=== PATIENT | female | born 1970 | race Hispanic/Latino ===

== ENCOUNTER 2017-09-14 12:00 | Emergency (ER) | payer BC ==
[2017-09-14 12:52] VITALS: BP 138/94
[2017-09-14] MEDS ORDERED: DELTASONE PO ONE (13:02)
--- NOTE | 2017-09-14 13:07 | Emergency Department Report ---
Minor Respiratory - HPI Chief Complaint: Upper Respiratory Infection Stated Complaint: SICK Time Seen by Provider: 09/14/17 13:01 Duration: 2 weeks Severity: moderate Minor Respiratory: Yes Able to Tolerate Fluids, Yes Cough, No Rhinorrhea, No Sore Throat, No Ear Pain, No Sick Contacts, No Hemoptysis, No Chest Pain, No Shortness of Breath, No Fever Other History: 47-year-old female with no past medical history presents complaining of cough and body aches for the past 2 weeks. Patient states she is not getting better. Patient states she sitting some cough suppressant with no relief. He denies nausea/vomiting/chest pains or shortness of breath/ abdominal pain. ED Review of Systems ROS: Stated complaint: SICK Other details as noted in HPI Constitutional: denies: chills, fever Eyes: denies: eye pain, eye discharge, vision change ENT: congestion. denies: ear pain, throat pain Respiratory: cough. denies: shortness of breath, wheezing Cardiovascular: denies: chest pain, palpitations Endocrine: no symptoms reported Gastrointestinal: denies: abdominal pain, nausea, vomiting, diarrhea Genitourinary: denies: urgency, dysuria, discharge Musculoskeletal: denies: back pain, joint swelling, arthralgia Skin: denies: rash, lesions Neurological: denies: headache, weakness, paresthesias Psychiatric: denies: anxiety, depression Hematological/Lymphatic: denies: easy bleeding, easy bruising ED Past Medical Hx - Past Medical History Previous Medical History?: Yes Additional medical history: Heart palpitations - Surgical History Past Surgical History?: Yes Additional Surgical History: x 2, Tonsillectomy - Social History Smoking Status: Never Smoker Substance Use Type: Alcohol, Prescribed - Medications Home Medications: Home Medications Medication Instructions Recorded Confirmed Last Taken Type Acetamin/Codeine 120-12Mg/5 ml 5 ml PO TID PRN #80 ml 09/14/17 Unknown Rx [Tylenol/Codeine] Azithromycin [Zithromax] 250 mg PO DAILY #6 tablet 09/14/17 Unknown Rx guaiFENesin [Mucinex] 600 mg PO BID #24 tab.er.12h 09/14/17 Unknown Rx predniSONE [Deltasone] 10 mg PO QDAY #5 tab 09/14/17 Unknown Rx Minor Respiratory Exam - Exam General: Vital signs noted. No distress. Alert and acting appropriately. HEENT: Yes Moist Mucous Membranes, No Pharyngeal Erythema, No Pharyngeal Exudates, No Rhinorrhea, No Conjuctival Injection, No Frontal Tenderness, No Maxillary Tenderness Ear: Neither TM Bulge, Neither TM Erythema, Neither EAC Pain, Neither EAC Discharge Neck: Yes Supple, No Adenopathy Lungs: Yes Good Air Exchange, No Wheezes, No Ronchi, No Stridor, No Cough, No Labored Respirations, No Retractions, No Use of Accessory Muscles, No Other Abnormal Lung Sounds Heart: Yes Regular, No Murmur Abdomen: Yes Normal Bowel Sounds, No Tenderness, No Peritoneal Signs Skin: No Rash, No Edema Neurologic: Alert and oriented, no deficits. Musculoskeletal: Unremarkable. ED Course Vital Signs 09/14/17 12:48 Temperature 98.8 F Pulse Rate 89 Respiratory 20 Rate Blood Pressure 138/94 O2 Sat by Pulse 98 Oximetry ED Medical Decision Making - Radiology Data Radiology results: report reviewed, image reviewed Fluoro Time In Minutes: ROUTINE CHEST, TWO VIEWS: HISTORY: Productive cough. The trachea, heart, mediastinal contour, lung dean and bony thorax are unremarkable. IMPRESSION: Unremarkable chest x-ray. Transcribed By: TTR Dictated By: EMILY GEORGE JR, MD Electronically Authenticated By: EMILY GEORGE JR, MD Signed Date/Time: 09/14/17 1309 - Medical Decision Making 47-year-old female presents with cold symptoms. Fever resolved,no fever during the ED stay. Discussed with with pt symptomatic relief with [id number] medications. Discussed continue Motrin as needed for fever and pain. Discussed increase fluids and diet intake. Discussed rest much needed. Discussed daily vitamin C for immune booster. Discussed follow-up with inventory analyst in 3-5 days. Patient verbally states she understands and will comply the following instructions and follow-up Vital signs stable. Patient is in no acute distress Critical care attestation.: If time is entered above; I have spent that time in minutes in the direct care of this critically ill patient, excluding procedure time. ED Disposition Clinical Impression: Bronchitis URI (upper respiratory infection) Qualifiers: URI type: unspecified URI Qualified Code(s): J06.9 - Acute upper respiratory infection, unspecified Disposition: - TO HOME OR SELFCARE Is pt being admited?: No Does the pt Need Aspirin: No Condition: Stable Instructions: Upper Respiratory Infection (ED), Acute Bronchitis (ED), Chronic Bronchitis (ED), Cold Symptoms (ED) Additional Instructions: Make sure to follow up with the primary care physician as discussed. Take all your medications as you've been prescribed. If you have any worsening symptoms or develop new symptoms please return to ED immediately. Prescriptions: Acetamin/Codeine 120-12Mg/5 ml [Tylenol/Codeine] 5 ml PO TID PRN #80 ml PRN Reason: Pain Azithromycin [Zithromax] 250 mg PO DAILY #6 tablet guaiFENesin [Mucinex] 600 mg PO BID #24 tab.er.12h predniSONE [Deltasone] 10 mg PO QDAY #5 tab Referrals: VERONICA MAS MD [Primary Care Provider] - 3-5 Days VALENTÍN FLOWER MD [Staff Physician] - 3-5 Days Forms: Work/School Release Form(ED) Time of Disposition: 15:02
--- NOTE | 2017-09-14 13:16 | XRay Report ---
ROUTINE CHEST, TWO VIEWS: HISTORY: Productive cough. The trachea, heart, mediastinal contour, lung dean and bony thorax are unremarkable. IMPRESSION: Unremarkable chest x-ray.
== END 2017-09-14 15:10 | disposition home or self-care (01) ==
LOC: ED 12:00
DX: J40 Bronchitis, not specified as acute or chronic (principal); J06.9 Acute upper respiratory infection, unspecified
CPT/HCPCS: 71046; 87116; 87400; 87430; 99283; J7512

== ENCOUNTER 2017-09-19 13:48 | Emergency (ER) | payer BC ==
[2017-09-19 13:50] VITALS: BP 113/76
--- NOTE | 2017-09-19 13:59 | Emergency Department Report ---
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 She's been dealing with the previous diagnosis of bronchitis for the past week or so. She has already finished a Z-Rick, 2 rounds of prednisone and is currently taking Keflex. She had been taking cough medication with codeine which does help her with her cough and get rest in the evening but it has run out. She denies any current fever, chest pain, shortness of breath. She has a primary care physician, Dr. Copeland, for follow- up. No recent travel. ED Past Medical Hx - Past Medical History Additional medical history: Heart palpitations - Surgical History Additional Surgical History: x 2, Tonsillectomy - Social History Smoking Status: Never Smoker Substance Use Type: Alcohol, Prescribed - Medications Home Medications: Home Medications Medication Instructions Recorded Confirmed Last Taken Type Azithromycin [Zithromax] 250 mg PO DAILY #6 tablet 09/14/17 Unknown Rx guaiFENesin [Mucinex] 600 mg PO BID #24 tab.er.12h 09/14/17 Unknown Rx predniSONE [Deltasone] 10 mg PO QDAY #5 tab 09/14/17 Unknown Rx Acetamin/Codeine 120-12Mg/5 ml 5 ml PO TID PRN #140 ml 09/19/17 Unknown Rx [Tylenol/Codeine 120-12 mg/5 ml] ED Review of Systems ROS: Stated complaint: cough Other details as noted in HPI Comment: All other systems reviewed and negative Constitutional: denies: chills, fever Eyes: denies: eye pain, eye discharge, vision change ENT: denies: ear pain, throat pain Respiratory: cough. denies: shortness of breath Cardiovascular: denies: chest pain, palpitations Gastrointestinal: denies: abdominal pain, nausea, diarrhea Genitourinary: denies: urgency, dysuria, discharge Musculoskeletal: denies: back pain, joint swelling, arthralgia Skin: denies: rash, lesions Neurological: denies: headache, weakness, paresthesias Physical Exam - Physical Exam Vital Signs: Vital Signs 09/19/17 13:49 Temperature 97.8 F Pulse Rate 91 H Respiratory 18 Rate Blood Pressure 113/76 O2 Sat by Pulse 96 Oximetry Physical Exam: GENERAL: The patient is well-developed well-nourished. HENT: Normocephalic. Atraumatic. Patient has moist mucous membranes. EYES: Extraocular motions are intact. NECK: Supple. Trachea is midline. CHEST/LUNGS: Clear to auscultation. Productive cough heard during examination. There is no respiratory distress noted. HEART/CARDIOVASCULAR: Regular. There is no tachycardia. There is no murmur. ABDOMEN: Abdomen is soft. Patient has normal bowel sounds. There is no abdominal distention. SKIN: Skin is warm and dry. NEURO: The patient is awake, alert, and oriented. The patient is cooperative. The patient has no focal neurologic deficits. The patient has normal speech and gait. MUSCULOSKELETAL: There is no tenderness or deformity. There is no evidence of acute injury. ED Course Vital Signs 09/19/17 13:49 Temperature 97.8 F Pulse Rate 91 H Respiratory 18 Rate Blood Pressure 113/76 O2 Sat by Pulse 96 Oximetry ED Medical Decision Making - Medical Decision Making She has a productive cough but does not appear to be in any respiratory distress. She appears he had a chest x-ray that does not show any pneumonia. Vital signs stable including being afebrile and no hypoxia. I refilled her cough medication and she is encouraged to see her PCP. She will return to the ER if any worsening of her symptoms or any acute distress. - Differential Diagnosis bronchitis, asthma, URI, pneumonia Critical Care Time: No Critical care attestation.: If time is entered above; I have spent that time in minutes in the direct care of this critically ill patient, excluding procedure time. ED Disposition Clinical Impression: Bronchitis URI (upper respiratory infection) Qualifiers: URI type: unspecified URI Qualified Code(s): J06.9 - Acute upper respiratory infection, unspecified Disposition: DC-01 TO HOME OR SELFCARE Is pt being admited?: No Condition: Stable Instructions: Chronic Bronchitis (ED) Additional Instructions: Please follow up with your PCP. Return to the ED with any worsening of your symptoms or any acute distress. You have been prescribed a medication that is sedating and therefore should not be taken prior to driving, working, and responsible for children and in no way should be mixed with alcohol of any quantity. Prescriptions: Acetamin/Codeine 120-12Mg/5 ml [Tylenol/Codeine 120-12 mg/5 ml] 5 ml PO TID PRN #140 ml PRN Reason: Cough Referrals: DEANN COPELAND MD [Referring] - 3-5 Days Time of Disposition: 13:55
== END 2017-09-19 15:00 | disposition home or self-care (01) ==
LOC: ED 13:48
DX: J40 Bronchitis, not specified as acute or chronic (principal); J06.9 Acute upper respiratory infection, unspecified
CPT/HCPCS: 99282

== ENCOUNTER 2019-10-22 22:18 | Emergency (ER) | payer SELFPAY ==
[2019-10-22 23:08] VITALS: BP 130/80
--- NOTE | 2019-10-22 23:30 | XRay Report ---
RIGHT HIP, 2 VIEWS INDICATION / CLINICAL INFORMATION: right hip pain. COMPARISON: None available. FINDINGS: There is prominent degenerative change involving the right hip. There is loss of joint space as well as subchondral sclerosis within the superior acetabulum. There is also some mottling of the bone with in the right femoral head. No fracture or dislocation. IMPRESSION: Prominent degenerative change involving the right hip. Signer Name: Kirsten Hughes MD Signed: 10/22/2019 11:25 PM Workstation Name: [id number]
== END 2019-10-22 23:40 | disposition left against medical advice (07) ==
LOC: ED 22:18
DX: M25.551 Pain in right hip (principal); Z53.21 Procedure and treatment not carried out due to patient leaving prior to being seen by health care provider

== ENCOUNTER 2019-11-12 15:30 | Emergency (ER) | payer BC ==
[2019-11-12 15:35] VITALS: BP 141/95
--- NOTE | 2019-11-12 16:24 | XRay Report ---
CHEST 1 VIEW INDICATION / CLINICAL INFORMATION: Cough for 2 weeks, Poss Covid 2 exposure. COMPARISON: 09/14/2017 FINDINGS: SUPPORT DEVICES: None. HEART / MEDIASTINUM: No significant abnormality. LUNGS / PLEURA: No significant pulmonary or pleural abnormality. No pneumothorax. ADDITIONAL FINDINGS: No significant additional findings. IMPRESSION: No acute pulmonary or pleural abnormality. No change from 09/14/2017 Signer Name: Shar Medina MD FACR Signed: 11/12/2019 4:20 PM Workstation Name: [id number]
--- NOTE | 2019-11-12 16:50 | Emergency Department Report ---
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 Patient states that she has been taking ibuprofen and acetaminophen for her musculoskeletal problems. Patient also reports that she has not been able to sleep as she has not been on her trazodone for a few nights. Patient does admit that she has stayed away from her family members just for concerns since she has had positive covid contact. ED Review of Systems ROS: Stated complaint: CHILLS, CHEST PRESSURE,COUGH Other details as noted in HPI ED Past Medical Hx - Past Medical History Previous Medical History?: Yes Additional medical history: Heart palpitations - Surgical History Past Surgical History?: Yes Additional Surgical History: x 2, Tonsillectomy - Social History Smoking Status: Current Some Day Smoker Substance Use Type: Alcohol - Medications Home Medications: Home Medications Medication Instructions Recorded Confirmed Last Taken Type guaiFENesin [Mucinex] 600 mg PO BID #24 tab.er.12h 09/14/17 Unknown Rx predniSONE [Deltasone] 10 mg PO QDAY #5 tab 09/14/17 Unknown Rx Acetamin/Codeine 120-12Mg/5 ml 5 ml PO TID PRN #140 ml 09/19/17 Unknown Rx [Tylenol/Codeine 120-12 mg/5 ml] Albuterol Sulfate [Proventil Hfa] 6.7 gm IH QID PRN #1 hfa.aer.ad 11/12/19 Unknown Rx Azithromycin [Zithromax Z-CAROLINE] 250 mg PO DAILY #6 tablet 11/12/19 Unknown Rx traZODone [Desyrel] 100 mg PO QHS #30 tablet 11/12/19 Unknown Rx Minor Respiratory Exam - Exam General: Vital signs noted. No distress. Alert and acting appropriately. HEENT: Yes Moist Mucous Membranes, No Pharyngeal Erythema, No Pharyngeal Exudates, No Rhinorrhea, No Conjuctival Injection, No Frontal Tenderness, No Maxillary Tenderness Neck: Yes Supple, No Adenopathy Lungs: Yes Good Air Exchange, No Wheezes, No Ronchi, No Stridor, No Cough, No Labored Respirations, No Retractions, No Use of Accessory Muscles, No Other Abnormal Lung Sounds Heart: Yes Regular, No Murmur Abdomen: Yes Normal Bowel Sounds, No Tenderness, No Peritoneal Signs Skin: No Rash, No Edema Neurologic: Alert and oriented, no deficits. Musculoskeletal: Unremarkable. ED Course Vital Signs 11/12/19 15:32 Temperature 99.9 F H Pulse Rate 89 Blood Pressure 141/95 ED Medical Decision Making - Radiology Data Radiology results: report reviewed [facility] [address] [place] [address] XRay Report Signed Patient: JERRY CAMPOS MR#: [id number] : 1970 Acct:[id number] Age/Sex: 49 / F ADM Date: 11/12/19 Loc: ED Attending Dr: Ordering Physician: ED MD ASHISH Date of Service: 11/12/19 Procedure(s): XR chest 1V ap Accession Number(s): [id number] cc: ED MD ASHISH Fluoro Time In Minutes: CHEST 1 VIEW INDICATION / CLINICAL INFORMATION: Cough for 2 weeks, Poss Covid 2 exposure. COMPARISON: 09/14/2017 FINDINGS: SUPPORT DEVICES: None. HEART / MEDIASTINUM: No significant abnormality. LUNGS / PLEURA: No significant pulmonary or pleural abnormality. No pneumothorax. ADDITIONAL FINDINGS: No significant additional findings. IMPRESSION: No acute pulmonary or pleural abnormality. 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 Patient states that she has been taking ibuprofen and acetaminophen for her musculoskeletal problems. Patient also reports that she has not been able to sleep as she has not been on her trazodone for a few nights. Patient does admit that she has stayed away from her family members just for concerns since she has had positive covid contact. Patient will be placed on a azithromycin encouraged to take Tylenol for fever and pain will discharge her on an albuterol inhaler as well as a refill on her trazodone. Patient is instructed to follow-up with her primary care doctor if her symptoms persist symptoms worsen to return back to the emergency room immediately. Critical care attestation.: If time is entered above; I have spent that time in minutes in the direct care of this critically ill patient, excluding procedure time. ED Disposition Clinical Impression: Upper respiratory infection, Chronic insomnia, Fever and chills Disposition: TO HOME OR SELFCARE Is pt being admited?: No Does the pt Need Aspirin: No Condition: Stable Instructions: Upper Respiratory Infection (ED) Additional Instructions: Complete antibiotics as prescribed use inhaler as needed take medications as prescribed. Follow-up with your primary care provider next 2 to 3 days. Increase your fluid intake advance her diet as tolerated try to get sleep as this will help you body recover. Prescriptions: traZODone [Desyrel] 100 mg PO QHS #30 tablet Albuterol Sulfate [Proventil Hfa] 6.7 gm IH QID PRN #1 hfa.aer.ad PRN Reason: Shortness Of Breath Azithromycin [Zithromax Z-CAROLINE] 250 mg PO DAILY #6 tablet Referrals: PRIMARY CARE, [Primary Care Provider] - 3-5 Days Forms: Work/School Release Form(ED)
== END 2019-11-12 17:04 | disposition home or self-care (01) ==
LOC: ED 15:30
DX: J06.9 Acute upper respiratory infection, unspecified (principal); F51.04 Psychophysiologic insomnia; F17.200 Nicotine dependence, unspecified, uncomplicated; Z90.89 Acquired absence of other organs; Z98.890 Other specified postprocedural states; Z79.899 Other long term (current) drug therapy
CPT/HCPCS: 71045

== ENCOUNTER 2020-03-06 09:23 | Outpatient (CLI) | payer BC ==
--- NOTE | 2020-03-07 07:42 | Ultrasound Report ---
EXAMINATION: Left Limited Breast Ultrasound, 03/06/2020 INDICATION: Abnormal screening mammogram. Screening recall the left breast. The patient has a 6 mm nodular densit y in the left breast at the 9:00 position anterior depth which persists on spot compression views. COMPARISON: Screening mammogram, 01/18/2020. Diagnostic mammogram, 02/26/2020 FINDINGS: Targeted ultrasound evaluation was performed of the area of interest. Sonographic evaluati on of the left breast at the 9:00 position 1 cm from the nipple demonstrates an oval wider than tall circumscribed hypoechoic nodule measuring 0.6 x 0.3 cm. There is no significant associated vascularit y. This corresponds to the mammographic findings. IMPRESSION: Follow up recommendation: Biopsy BI-RADS Category 4: Suspicious for Malignancy. Left breast nodule as described above. This nodule is low suspicion for malignancy and may represent a fibroadenoma or papilloma. Surgical consultation an d ultrasound-guided biopsy is recommended. A normal or "negative" report should not preclude biopsy or follow-up of a clinically suspicious find ing. Signer Name: Rae Valle MD Signed: 03/06/2020 10:30 AM Workstation Name: [id number]
== END 2020-03-06 09:24 | disposition home or self-care (01) ==
LOC: US 09:23
DX: R92.8 Other abnormal and inconclusive findings on diagnostic imaging of breast (principal)

== ENCOUNTER 2020-05-27 19:19 | Outpatient (CLI) | payer BC ==
[2020-05-27 20:35] LABS: Basophils % (Auto) 0.2 % (0.0-1.8); Hematocrit 36.8 % (30.3-42.9); Hemoglobin 12.5 gm/dl (10.1-14.3); Lymphocytes # (Auto) 1.1 K/mm3 (1.2-5.4); Lymphocytes % (Auto) 13.9 % (13.4-35.0); Mean Corpuscular HGB Conc 34 % (30-34); Mean Corpuscular Volume 93 fl (79-97); Monocytes # (Auto) 0.4 K/mm3 (0.0-0.8); Monocytes % (Auto) 4.8 % (0.0-7.3); Platelet Count 296 K/mm3 (140-440); Red Blood Count 3.96 M/mm3 (3.65-5.03); Red Cell Distribution Width 14.1 % (13.2-15.2)
[2020-05-27 20:56] LABS: Alanine Aminotransferase 23 units/L (7-56); Albumin 4.6 g/dL (3.9-5); Blood Urea Nitrogen 18 mg/dL (7-17); Calcium 9.1 mg/dL (8.4-10.2); Chol/HDL Ratio 4.59 %; HDL Cholesterol 54 mg/dL (40-59); Hemolysis Index 7; LDL Cholesterol,Direct 168 mg/dL (50-130); Uric Acid 4.5 mg/dL (3.5-7.6)
[2020-05-27 21:01] LABS: BUN/Creatinine Ratio 36
[2020-05-27 21:12] LABS: Erythrocyte Sedimentation Rate 15 mm/Hr (0-20)
== END 2020-05-27 19:20 | disposition home or self-care (01) ==
LOC: LAB 19:19
PROVIDERS: ATTEND Internal Medicine
DX: Z00.00 Encounter for general adult medical examination without abnormal findings (principal); R53.83 Other fatigue; E78.2 Mixed hyperlipidemia; E11.65 Type 2 diabetes mellitus with hyperglycemia; E55.9 Vitamin D deficiency, unspecified; Z79.890 Hormone replacement therapy
CPT/HCPCS: 36415; 80053; 80061; 82533; 82652; 82747; 83001; 83036; 84443; 84550; 85025; 85652; 86200; 86225

== ENCOUNTER 2020-07-05 08:50 | Outpatient (CLI) | payer BC ==
[2020-07-05] MEDS ORDERED: REGADENOSON 0.4 MG/5 ML INJ IV SCH (12:18)
[2020-07-05 12:39] VITALS: BP 138/83
--- NOTE | 2020-07-06 09:05 | Treadmill Report ---
THALLIUM STRESS TEST LEFT VENTRICLE: Left ventricular chamber size is within normal spread. Perfusion study demonstrates homogeneous uptake of the tracer in all segments, no defects identified. Gated analysis demonstrates normal left ventricular systolic function, ejection fraction 66%. CONCLUSION: Normal myocardial perfusion study. JOB# [id number] CA/NTS
== END 2020-07-05 08:51 | disposition home or self-care (01) ==
LOC: CARD 08:50
PROVIDERS: ATTEND Internal Medicine Cardiovascular Disease
DX: I08.8 Other rheumatic multiple valve diseases (principal); R07.2 Precordial pain
CPT/HCPCS: 78452; 93017; 93306; A9502; J2785

== ENCOUNTER 2020-10-09 19:29 | Emergency (ER) | payer BC ==
[2020-10-09 19:47] VITALS: BP 144/81
--- NOTE | 2020-10-09 19:56 | Emergency Department Report ---
ED Abdominal Pain HPI - General Chief Complaint: Urogenital-Female Stated Complaint: VAGINAL BLEEDING Source: patient Mode of arrival: Ambulatory Limitations: No Limitations - History of Present Illness Initial Comments: Patient is a 50-year-old female with a history of GERD, chronic osteoarthritis, chronic fibromyalgia, kidney stones, anxiety and depression and chronic uterine fibroids presents to the ED with acute onset persistent severe suprapubic pain that radiates to the right lower quadrant and lower back for the last 1 week, worse in the last 2 days. Patient also states that she recently had her menstrual cycle which lasted about 1 week and is currently also having another round of her menstrual cycle barely 2 weeks later. Patient states that in the last 3 months she has had up to 2 episodes of menstrual cycle with heavy vaginal bleeding and has always attributed this to her chronic uterine fibroids. Patient however states that in the last 2 days, the pain in her suprapubic area has been persistent and worse and radiating to the right lower quadrant and lower back. Patient denies traumatic injury, fever, chills, dysuria, urinary frequency and urgency, nausea, vomiting, diarrhea, heavy lifting or fall, numbness and tingling or weakness of lower extremities bilaterally. MD Complaint: abdominal pain, other (vaginal bleeding) -: Sudden, week(s) (1) Location: RLQ, suprapubic Radiation: RLQ, suprapubic, back (lower ) Migration to: no migration Severity scale (0 -10): 8 Quality: aching, sharp Consistency: constant Improves With: nothing Worsens With: movement Context: other (chronic low back pain; chronic uterine fibroids) Associated Symptoms: denies other symptoms, anorexia. denies: nausea, vomiting, diarrhea, fever, chills, dysuria, hematemesis, hematochezia, melena, hematuria - Related Data LMP (females 10-50): last week Home Medications Medication Instructions Recorded Confirmed Last Taken Trazodone HCl [Trazodone] 100 mg PO QHS 06/24/13 07/06/16 03/11/15 clonazePAM [KlonoPIN] 0.5 mg PO BID PRN 06/24/13 07/06/16 03/06/15 Previous Rx's Medication Instructions Recorded Last Taken Type Metoprolol [Lopressor TAB] 25 mg PO QDAY #30 tablet 06/25/13 03/11/15 Rx Pantoprazole [Protonix] 40 mg PO QDAY #10 tablet 07/06/16 Unknown Rx guaiFENesin [Mucinex] 600 mg PO BID #24 tab.er.12h 09/14/17 Unknown Rx predniSONE 10 mg PO QDAY #5 tab 09/14/17 Unknown Rx Acetamin/Codeine 120-12Mg/5 ml 5 ml PO TID PRN #140 ml 09/19/17 Unknown Rx [Tylenol/Codeine 120-12 mg/5 ml] Cetirizine HCl [ZyrTEC] 10 mg PO DAILY #30 capsule 12/14/18 Unknown Rx Permethrin 5% [Acticin 5% CREAM] 1 applicatio TP ONCE #1 tube 12/14/18 Unknown Rx hydrOXYzine PAMOATE [Vistaril] 50 mg PO Q6HR PRN #50 capsule 12/14/18 Unknown Rx methylPREDNISolone [Medrol] 4 mg PO DAILY #1 tab.ds.pk 12/14/18 Unknown Rx Albuterol Sulfate [Proventil Hfa] 6.7 gm IH QID PRN #1 hfa.aer.ad 11/12/19 Unknown Rx Azithromycin [Zithromax Z-CAROLINE] 250 mg PO DAILY #6 tablet 11/12/19 Unknown Rx traZODone [Desyrel] 100 mg PO QHS #30 tablet 11/12/19 Unknown Rx Ibuprofen [Motrin 800 MG tab] 800 mg PO Q8HR PRN #30 tablet 10/09/20 Unknown Rx traMADoL [Ultram 50 MG tab] 50 mg PO Q6HR PRN #12 tablet 10/09/20 Unknown Rx Allergies Allergy/AdvReac Type Severity Reaction Status Date / Time No Known Allergies Allergy Verified 02/25/20 11:26 ED Review of Systems ROS: Stated complaint: VAGINAL BLEEDING Other details as noted in HPI Constitutional: denies: chills, fever Eyes: denies: eye pain, eye discharge, vision change ENT: denies: ear pain, throat pain Respiratory: denies: cough, shortness of breath, wheezing Cardiovascular: denies: chest pain, palpitations Endocrine: no symptoms reported Gastrointestinal: abdominal pain (Suprapubic pain that radiates to the right lower quadrant and low back). denies: nausea, vomiting, diarrhea Genitourinary: abnormal menses (vaginal bleeding). denies: urgency, dysuria, discharge Musculoskeletal: back pain (low back pain). denies: joint swelling, arthralgia Skin: denies: rash, lesions Neurological: denies: headache, weakness, paresthesias Psychiatric: denies: anxiety, depression Hematological/Lymphatic: denies: easy bleeding, easy bruising ED Past Medical Hx - Past Medical History Previous Medical History?: Yes Hx Hypertension: No Hx CVA: No Hx Heart Attack/AMI: No Hx Diabetes: No Hx GERD: Yes Hx Liver Disease: No Hx Renal Disease: No Hx Sickle Cell Disease: No Hx Arthritis: Yes (Fibromylagia) Hx Seizures: No Hx Kidney Stones: Yes Hx Asthma: No Hx COPD: No Additional medical history: Anxiety. HEART palpitations. PUD status post bleeding ulcer recent negative colonoscopy. Recent lump found on mammogram left breast - Surgical History Past Surgical History?: Yes Hx Pacemaker: No Hx Internal Defibrillator: No Additional Surgical History: x 2, Tonsillectomy, RIGHT Inguinal He rnia - Social History Smoking Status: Current Some Day Smoker Substance Use Type: Alcohol - Medications Home Medications: Home Medications Medication Instructions Recorded Confirmed Last Taken Type Trazodone HCl [Trazodone] 100 mg PO QHS 06/24/13 07/06/16 03/11/15 History clonazePAM [KlonoPIN] 0.5 mg PO BID PRN 06/24/13 07/06/16 03/06/15 History Metoprolol [Lopressor TAB] 25 mg PO QDAY #30 tablet 06/25/13 07/06/16 03/11/15 Rx Pantoprazole [Protonix] 40 mg PO QDAY #10 tablet 07/06/16 Unknown Rx guaiFENesin [Mucinex] 600 mg PO BID #24 tab.er.12h 09/14/17 Unknown Rx predniSONE 10 mg PO QDAY #5 tab 09/14/17 Unknown Rx Acetamin/Codeine 120-12Mg/5 ml 5 ml PO TID PRN #140 ml 09/19/17 Unknown Rx [Tylenol/Codeine 120-12 mg/5 ml] Cetirizine HCl [ZyrTEC] 10 mg PO DAILY #30 capsule 12/14/18 Unknown Rx Permethrin 5% [Acticin 5% CREAM] 1 applicatio TP ONCE #1 tube 12/14/18 Unknown Rx hydrOXYzine PAMOATE [Vistaril] 50 mg PO Q6HR PRN #50 capsule 12/14/18 Unknown Rx methylPREDNISolone [Medrol] 4 mg PO DAILY #1 tab.ds.pk 12/14/18 Unknown Rx Albuterol Sulfate [Proventil Hfa] 6.7 gm IH QID PRN #1 hfa.aer.ad 11/12/19 Unknown Rx Azithromycin [Zithromax Z-CAROLINE] 250 mg PO DAILY #6 tablet 11/12/19 Unknown Rx traZODone [Desyrel] 100 mg PO QHS #30 tablet 11/12/19 Unknown Rx Ibuprofen [Motrin 800 MG tab] 800 mg PO Q8HR PRN #30 tablet 10/09/20 Unknown Rx traMADoL [Ultram 50 MG tab] 50 mg PO Q6HR PRN #12 tablet 10/09/20 Unknown Rx ED Physical Exam - General Limitations: No Limitations General appearance: alert, in no apparent distress - Head Head exam: Present: atraumatic, normocephalic, normal inspection - Eye Eye exam: Present: normal appearance, PERRL, EOMI Pupils: Present: normal accommodation - ENT ENT exam: Present: normal exam, normal orophraynx, mucous membranes moist, TM's normal bilaterally, normal external ear exam - Neck Neck exam: Present: normal inspection, full ROM. Absent: tenderness, lymphadenopathy - Respiratory Respiratory exam: Present: normal lung sounds bilaterally. Absent: respiratory distress, wheezes, rales, rhonchi, chest wall tenderness, accessory muscle use, decreased breath sounds, prolonged expiratory - Cardiovascular Cardiovascular Exam: Present: regular rate, normal rhythm. Absent: tachycardia, irregular rhythm, normal heart sounds, systolic murmur, diastolic murmur, rubs, gallop - GI/Abdominal GI/Abdominal exam: Present: soft, tenderness (Palpable RLQ and Suprapubic tenderness), normal bowel sounds. Absent: guarding, rebound, hyperactive bowel sounds, hypoactive bowel sounds - Bi-manual exam: Present: other (Pelvic exam deferred at this time) - Extremities Exam Extremities exam: Present: normal inspection, full ROM, tenderness (Palpable right inguinal and hip tenderness), normal capillary refill. Absent: pedal edema - Back Exam Back exam: Present: normal inspection, full ROM, tenderness (Palpable lumbosacral paraspinal musculoskeletal tenderness), muscle spasm, paraspinal tenderness. Absent: CVA tenderness (R), CVA tenderness (L), vertebral tenderness - Neurological Exam Neurological exam: Present: alert, oriented X3, CN II-XII intact, normal gait, reflexes normal - Psychiatric Psychiatric exam: Present: normal affect, normal mood - Skin Skin exam: Present: warm, dry, intact, normal color. Absent: rash ED Course Vital Signs 10/09/20 19:43 Temperature 98.8 F Pulse Rate 78 Respiratory 18 Rate Blood Pressure 144/81 [Right] O2 Sat by Pulse 97 Oximetry ED Medical Decision Making - Lab Data Result diagrams: 10/09/20 19:53 10/09/20 19:53 - Radiology Data Radiology results: report reviewed, image reviewed Findings [facility] [address] [place] [address] Cat Scan Report Signed Patient: JERRY RODRIGUEZ MR#: [id number] : 1970 Acct:[id number] Age/Sex: 50 / F ADM Date: 10/09/20 Loc: ED Attending Dr: Ordering Physician: SHASHANK ZENG Date of Service: 10/09/20 Procedure(s): CT abdomen pelvis w con Accession Number(s): [id number] cc: SHASHANK ZENG CT ABDOMEN AND PELVIS WITH CONTRAST INDICATION / CLINICAL INFORMATION: Pt complains of Pelvic + R.L.Q. Pain and Vaginal bleeding. TECHNIQUE: Axial CT images were obtained through the abdomen and pelvis after IV contrast. All CT scans at this location are performed using CT dose reduction for ALARA by means of automated exposure control. COMPARISON: 07/06/2016 FINDINGS: LOWER CHEST: No significant abnormality. LIVER: No significant abnormality. GALLBLADDER: No significant abnormality. BILE DUCTS: No significant abnormality. PANCREAS: No significant abnormality. SPLEEN: No significant abnormality. ADRENALS: No significant abnormality. RIGHT KIDNEY / URETER: No significant abnormality. LEFT KIDNEY / URETER: No significant abnormality. STOMACH / SMALL BOWEL: No significant abnormality. COLON: No significant abnormality. APPENDIX: No significant abnormality. PERITONEUM: No free fluid. No free air. No fluid collection. LYMPH NODES: No significant adenopathy. AORTA / ARTERIES: No significant abnormality. IVC / VEINS: No significant abnormality. URINARY BLADDER: No significant abnormality. REPRODUCTIVE ORGANS: Enlarged and globular uterus measures 11.4 x 7.2 cm and demonstrates multiple uterine fibroids, some of which are degenerated. The largest focal uterine lesion measures 3.2 cm in the fundus. Bilateral simple ovarian cysts are noted, the largest on the right measures 4 cm and may be physiologic. ADDITIONAL FINDINGS: None. SKELETAL SYSTEM: Multilevel degenerative changes are noted of the spine. Large Schmorl's nodes are noted at the endplates of L4, L5, and S1. No aggressive osseous lesions. IMPRESSION: 1. Enlarged and globular uterus with multiple uterine fibroids, the largest measuring 3.2 cm in the fundus. 2. Bilateral simple ovarian cysts, the largest measures 4 cm on the right. This may be physiologic, correlation with patient's menstrual history is recommended. 3. No acute inflammatory process of the abdomen or pelvis. Signer Name: Lee Keith MD Signed: 10/09/2020 10:04 PM Workstation Name: [id number] Transcribed By: Dictated By: LEE KEITH Electronically Authenticated By: LEE KEITH Signed Date/Time: 10/09/202203 DD/ 57 TD/TT: - Medical Decision Making This is a 50-year-old female with a history of GERD, chronic osteoarthritis, chronic fibromyalgia, kidney stones, anxiety and depression and chronic uterine fibroids presents to the ED with acute onset persistent severe suprapubic pain that radiates to the right lower quadrant and lower back for the last 1 week, worse in the last 2 days. Patient also states that she recently had her menst rual cycle which lasted about 1 week and is currently also having another round of her menstrual cycle barely 2 weeks later. Patient states that in the last 3 months she has had up to 2 episodes of menstrual cycle with heavy vaginal bleeding and has always attributed this to her chronic uterine fibroids. Patient however states that in the last 2 days, the pain in her suprapubic area has been persistent and worse and radiating to the right lower quadrant and lower back. In the ED, patient is alert and oriented x3 and is not in any distress but appears to be in pain. Lab test results were reviewed and are all nonactionable. Patient preferred no pain medication at this time. The abdomen pelvis CT scan with contrast showed enlarged and globular uterus with multiple uterine fibroids, the largest measuring 3.2 cm in the fundus. It also showed bilateral simple ovarian cysts, the largest measures 4 cm on the right. This may be physiologic, correlation with patient's menstrual history is recommended. Otherwise no acute inflammatory process of the abdomen or pelvis. Patient was therefore discharged home on pain medications and advised to follow-up with [employer] physician in 5 to 7 days for reevaluation. Patient was advised to take her regular pain medications at home and return to the ED immediately if symptoms get worse. - Differential Diagnosis Dysmenorrhea; appendicitis; uterine fibroid; kidney stones; osteoarthritis Critical care attestation.: If time is entered above; I have spent that time in minutes in the direct care of this critically ill patient, excluding procedure time. ED Disposition Clinical Impression: Acute abdominal pain in right lower quadrant, Abnormal uterine bleeding (AUB), Degenerative disc disease, lumbar Ovarian cyst Qualifiers: Laterality: bilateral Qualified Code(s): N83.201 - Unspecified ovarian cyst, right side; N83.202 - Unspecified ovarian cyst, left side Disposition: TO HOME OR SELFCARE Is pt being admited?: No Does the pt Need Aspirin: No Condition: Stable Instructions: Ovarian Cyst, [id number], Abdominal Pain, Adult, [id number], Abnormal Uterine Bleeding, [id number], Dysmenorrhea, [id number] Additional Instructions: All lab test results were reviewed and are all nonactionable. Abdomen pelvis CT scan with contrast showed significant large uterine fibroids and bilateral ovarian cysts, with the right ovarian cyst measuring 4 cm. Therefore take pain medications as needed, drink plenty of fluids and follow-up with your [employer] physician in 5 to 7 days for reevaluation or return to the ED immediately if symptoms get worse. Prescriptions: Ibuprofen [Motrin 800 MG tab] 800 mg PO Q8HR PRN #30 tablet PRN Reason: Pain, Moderate (4-6) traMADoL [Ultram 50 MG tab] 50 mg PO Q6HR PRN #12 tablet PRN Reason: Pain , Severe (7-10) Referrals: WALT PERDUE MD [Primary Care Provider] - 3-5 Days NURIA AUGUSTINE MD [Staff Physician] - 3-5 Days Time of Disposition: 22:35 Print Language: PASHTO
[2020-10-09 20:22] LABS: Basophils % (Auto) 0.3 % (0.0-1.8); Eosinophils % (Auto) 0.4 % (0.0-4.3); Hematocrit 37.3 % (30.3-42.9); Hemoglobin 12.8 gm/dl (10.1-14.3); Lymphocytes # (Auto) 1.6 K/mm3 (1.2-5.4); Lymphocytes % (Auto) 19.6 % (13.4-35.0); Mean Corpuscular HGB Conc 34 % (30-34); Mean Corpuscular Volume 92 fl (79-97); Monocytes # (Auto) 0.7 K/mm3 (0.0-0.8); Monocytes % (Auto) 7.9 % (0.0-7.3); Platelet Count 271 K/mm3 (140-440); Red Blood Count 4.05 M/mm3 (3.65-5.03); Red Cell Distribution Width 12.8 % (13.2-15.2)
[2020-10-09 20:37] LABS: Bacteria,Urine 3+ /HPF (Negative); Bilirubin,Urine NEG (Negative); Blood,Urine SM (Negative); Color,Urine Yellow (Yellow); Protein,Urine <15 mg/dL mg/dL (Negative); Urobilinogen,Urine < 2.0 mg/dL (<2.0); WBC,Urine < 1.0 /HPF (0.0-6.0)
[2020-10-09 20:47] LABS: Alanine Aminotransferase 15 units/L (7-56); Albumin 4.5 g/dL (3.9-5); Blood Urea Nitrogen 12 mg/dL (7-17); Calcium 9.2 mg/dL (8.4-10.2); Hemolysis Index 6
[2020-10-09 20:48] LABS: BUN/Creatinine Ratio 20
--- NOTE | 2020-10-09 22:08 | Cat Scan Report ---
CT ABDOMEN AND PELVIS WITH CONTRAST INDICATION / CLINICAL INFORMATION: Pt complains of Pelvic + R.L.Q. Pain and Vaginal bleeding. TECHNIQUE: Axial CT images were obtained through the abdomen and pelvis after IV contrast. All CT scans at this location are performed using CT dose reduction for ALARA by means of automated exposure control. COMPARISON: 07/06/2016 FINDINGS: LOWER CHEST: No significant abnormality. LIVER: No significant abnormality. GALLBLADDER: No significant abnormality. BILE DUCTS: No significant abnormality. PANCREAS: No significant abnormality. SPLEEN: No significant abnormality. ADRENALS: No significant abnormality. RIGHT KIDNEY / URETER: No significant abnormality. LEFT KIDNEY / URETER: No significant abnormality. STOMACH / SMALL BOWEL: No significant abnormality. COLON: No significant abnormality. APPENDIX: No significant abnormality. PERITONEUM: No free fluid. No free air. No fluid collection. LYMPH NODES: No significant adenopathy. AORTA / ARTERIES: No significant abnormality. IVC / VEINS: No significant abnormality. URINARY BLADDER: No significant abnormality. REPRODUCTIVE ORGANS: Enlarged and globular uterus measures 11.4 x 7.2 cm and demonstrates multiple ut erine fibroids, some of which are degenerated. The largest focal uterine lesion measures 3.2 cm in th e fundus. Bilateral simple ovarian cysts are noted, the largest on the right measures 4 cm and may be physiologic. ADDITIONAL FINDINGS: None. SKELETAL SYSTEM: Multilevel degenerative changes are noted of the spine. Large Schmorl's nodes are no rich at the endplates of L4, L5, and S1. No aggressive osseous lesions. IMPRESSION: 1. Enlarged and globular uterus with multiple uterine fibroids, the largest measuring 3.2 cm in the f undus. 2. Bilateral simple ovarian cysts, the largest measures 4 cm on the right. This may be physiologic, c orrelation with patient's menstrual history is recommended. 3. No acute inflammatory process of the abdomen or pelvis. Signer Name: Lee Palomino MD Signed: 10/09/2020 10:04 PM Workstation Name: [id number]
== END 2020-10-09 22:56 | disposition home or self-care (01) ==
LOC: ED 19:29
DX: N83.201 Unspecified ovarian cyst, right side (principal); R10.31 Right lower quadrant pain; M51.36 Other intervertebral disc degeneration, lumbar region; N93.9 Abnormal uterine and vaginal bleeding, unspecified; F17.200 Nicotine dependence, unspecified, uncomplicated; K21.9 Gastro-esophageal reflux disease without esophagitis; M19.90 Unspecified osteoarthritis, unspecified site; F32.9 Major depressive disorder, single episode, unspecified; F41.9 Anxiety disorder, unspecified; Z87.442 Personal history of urinary calculi; Z79.899 Other long term (current) drug therapy; Z98.890 Other specified postprocedural states
CPT/HCPCS: 36415; 74177; 80053; 81001; 83690; 85025; 99284; Q9967

== ENCOUNTER 2020-11-14 10:32 | Outpatient (CLI) | payer BC ==
--- NOTE | 2020-11-14 12:48 | Mammography Report ---
DIGITAL DIAGNOSTIC MAMMOGRAM WITH CAD , 11/14/2020 CLINICAL INFORMATION / INDICATION: Six month follow-up evaluation after benign left breast biopsy. Th e patient reports no new breast symptoms. TECHNIQUE: Digital left mammographic imaging was performed. This examination was interpreted with the benefit of Computer-aided Detection analysis. COMPARISON: Diagnostic mammogram, 03/26/2020 and 02/26/2020. Screening mammogram, 01/18/2020 FINDINGS: Breast Density: There are scattered areas of fibroglandular density. No dominant mass, suspicious calcifications or architectural distortion in the left breast. Biopsy clip is noted in the left 9:00 position anterior depth. IMPRESSION: No mammographic evidence of malignancy. Follow up recommendation: Back to schedule. BI-RADS Category 2: Benign. A "normal" or negative report should not discourage follow up or biopsy of a clinically significant f inding. A written summary of these findings will be mailed to the patient. The patient will be entered into a mammography reporting system which will generate a reminder letter for the patient's next appointmen t at the appropriate interval. According to the [employer], yearly mammograms are recommended starting at age 40 and continuing as long as a woman is in good health. Breast MRI is recommended for women with an nimo roximately 20-25% or greater lifetime risk of breast cancer, including women with a strong family his tory of breast or ovarian cancer and women who have been treated for Hodgkin's disease. Signer Name: Rae Valle MD Signed: 11/14/2020 12:37 PM Workstation Name: [id number]
== END 2020-11-14 10:33 | disposition home or self-care (01) ==
LOC: MAMMO 10:32
PROVIDERS: ATTEND Obstetrics & Gynecology
DX: R92.1 Mammographic calcification found on diagnostic imaging of breast (principal)

== ENCOUNTER 2020-12-27 09:10 | Day surgery (SDC) | payer BC ==
[~2020-12-27 09:10] MED LIST: SODIUM CHLORIDE 0.9% 1000 ML 1,000 ML IV SCH
[2020-12-27] MEDS ORDERED: propofoL 200 MG/20 ML VIAL IV ONE ×3 (10:30→11:04)
--- NOTE | 2020-12-27 13:32 | Anesthesia Day of Surgery ---
Anesthesia Day of Surgery - Day of Surgery Patient Examined: Yes Patient H&P Reviewed: Yes Patient is NPO: Yes Beta Blockers: Yes
--- NOTE | 2020-12-27 13:32 | Anesthesia Consultation ---
Anesthesia Consult and Med Hx Date of service: 12/27/20 - Airway Anesthetic Teeth Evaluation: Good ROM Head & Neck: Adequate Mental/Hyoid Distance: Adequate Mallampati Class: Class I Intubation Access Assessment: Good - Pre-Operative Health Status ASA Pre-Surgery Classification: ASA2 Proposed Anesthetic Plan: MAC - Pulmonary Hx Smoking: Yes (former smoker quit 2006) Hx Respiratory Symptoms: No - Cardiovascular System Hx Hypertension: Yes Hx Cardia Arrhythmia: Yes (PVCs; took metoprolol this morning) - Central Nervous System CVA: No - Gastrointestinal Hx Gastroesophageal Reflux Disease: No - Endocrine Hx Renal Disease: No Hx Liver Disease: No Hx Insulin Dependent Diabetes: No Hx Non-Insulin Dependent Diabetes: No
--- NOTE | 2020-12-27 13:33 | Post Anesthesia Evaluation ---
- Post Anesthesia Evaluation Patient Participated: Yes Airway Patent: Yes Stable Respiratory Function: Yes Nausea/Vomiting: No Temp > 96.8F: Yes Pain Manageable: Yes Adequeate Hydration: Yes Anesthesia Complications: No
[2020-12-27 14:45] VITALS: BP 113/70
== END 2020-12-27 12:05 | disposition home or self-care (01) ==
LOC: GIO 09:10
DX: Z12.11 Encounter for screening for malignant neoplasm of colon (principal); R13.10 Dysphagia, unspecified; K21.00 Gastro-esophageal reflux disease with esophagitis, without bleeding; K22.2 Esophageal obstruction; K22.8 Other specified diseases of esophagus; K31.89 Other diseases of stomach and duodenum; K63.89 Other specified diseases of intestine; K29.70 Gastritis, unspecified, without bleeding; K57.30 Diverticulosis of large intestine without perforation or abscess without bleeding; I42.9 Cardiomyopathy, unspecified; I10 Essential (primary) hypertension; M79.7 Fibromyalgia; F32.9 Major depressive disorder, single episode, unspecified; F41.9 Anxiety disorder, unspecified; Z87.891 Personal history of nicotine dependence; Z83.71 Family history of colonic polyps; Z79.899 Other long term (current) drug therapy; Z88.8 Allergy status to other drugs, medicaments and biological substances; Z98.890 Other specified postprocedural states; Z87.442 Personal history of urinary calculi
CPT/HCPCS: 43239; 43249; 45380; 88305; 88342; C1726; J2704; J7030

== ENCOUNTER 2021-01-14 06:00 | Observation (INO) | payer BC ==
[2021-01-10 13:46] LABS: Basophils % (Auto) 0.7 % (0.0-1.8); Eosinophils # (Auto) 0.1 K/mm3 (0.0-0.4); Hematocrit 35.8 % (30.3-42.9); Hemoglobin 12.2 gm/dl (10.1-14.3); Lymphocytes # (Auto) 1.5 K/mm3 (1.2-5.4); Lymphocytes % (Auto) 27.8 % (13.4-35.0); Mean Corpuscular HGB Conc 34 % (30-34); Mean Corpuscular Volume 91 fl (79-97); Monocytes # (Auto) 0.6 K/mm3 (0.0-0.8); Monocytes % (Auto) 10.5 % (0.0-7.3); Platelet Count 283 K/mm3 (140-440); Red Blood Count 3.94 M/mm3 (3.65-5.03)
--- NOTE | 2021-01-13 17:54 | History and Physical Report ---
History of Present Illness Date of examination: 01/03/21 Date of admission: 01/14/2021 Chief complaint: Excessive and frequent menstruation with regular cycle, fibroids and pelvic pain History of present illness: This is a 50 years old female who presents with pelvic pain. The symptoms began >1 year ago. On a scale of mild to severe, the intensity is described as severe. She complains of back pain and RLQ pain. She describes the pain as pressure. States she's had pelvic pain for years that feels like pressure but has gotten worse over the last year. Pain is mostly on the right ? inguinal hernia. She's had burning pain for the last 6months in the RLQ associated with back pain. Pain usually occurs ~1weeks before her period. She had TVUS ~2- 3years ago. The patient also presents with menstrual disorder. The symptoms began >1 year ago. She complains of heavy bleeding. Periods are heavier and more frequent. Now bleeds heavy 4/6-10 days. Her last hgb was 12.5(06/05/2020) States she had a CT scan ~4 months ago that revealed an enlarged uterus, ovarian cyst and fibroids. 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 History Operations: x2 Tonsillectomy Right inguinal hernia repair Breast Biopsy: (03/18/2020) (L) benign Esophageal dilation Abnormal PAP: negative Infection History HIV Risk Eval: no Hx of STD: None Active Medications (reviewed today): ADDERALL TABLET (AMPHETAMINE-DEXTROAMPHETAMINE TABS) IBUPROFEN 800 MG ORAL TABLET (IBUPROFEN) 1 po (PRN) TRAZODONE HCL TABLET (TRAZODONE HCL TABS) ROBAXIN-750 TABLET (METHOCARBAMOL TABS) METOPROLOL SUCCINATE ER TABLET EXTENDED RELEASE 24 HOUR (METOPROLOL SUCCINATE [id number]) Current Allergies: No known allergies Past Medical History: Juvenille Arthritis fibromyalgia Arrhythmia Dr. Romero ([facility]) Insomnia ADD Herniated L5-S1 Degenerative hip disease Anxiety Premalignant melanoma Hyperlipidemia Esophageal dilation Diverticulosis Past Surgical History: x2 Tonsillectomy Right inguinal hernia repair Breast Biopsy: (03/18/2020) (L) benign Esophageal dilation Family History Summary: Reviewed history and no changes required: 01/13/2021 Other Family Member - Has No Family History of Small Bowel Cancer - Entered On: 11/06/2020 Other Family Member - Has No Family History of Stomach Cancer - Entered On: 11/06/2020 Other Family Member - Has No Family History of Pancreatic Cancer - Entered On: 11/06/2020 Other Family Member - Has No Family History of Kidney/Urinary Tract Cancer - Entered On: 11/06/2020 Other Family Member - Has No Family History of Spontaneous DVT-PE - Entered On: 11/06/2020 Other Family Member - Has No Family History of Brain Cancer - Entered On: 11/06/2020 Other Family Member - Has No Family History of Biliary Tract Cancer - Entered On: 11/06/2020 Aunt - Has Family History Breast Cancer - maternal - Entered On: 11/06/2020 Uncle - Has Family History Colon Cancer - Maternal - Entered On: 11/06/2020 Uncle - Has Family History of Melanoma - Paternal x2 - Entered On: 11/06/2020 PGM - Has Family History of Uterine Cancer - Entered On: 11/06/2020 PGM - Has Family History of Ovarian Cancer - Entered On: 11/06/2020 General Comments - FH: Mother Throat cancer Social History: Patient is Patient currently smokes sometimes. Vapes Smoking History: Patient currently smokes every day. Risk Factors: Smoked Tobacco Use: Current every day smoker Cigarettes: Yes Smokeless Tobacco Use: Current Counseled to quit/cut down: yes Tobacco Use Comments: Vapes Drug use: no HIV high-risk behavior: no Alcohol use: yes Exercise: no Seatbelt use: 100 % Previous Tobacco Use: Signed On 11/22/2020 Smoked Tobacco Use: Current every day smoker Smokeless Tobacco Use: Never Counseled to quit/cut down: yes Tobacco Use Comments: pt. is vaping Drug use: no HIV high-risk behavior: no Previous Alcohol Use: Signed On 11/22/2020 Alcohol use: yes Type: socially Drinks per day: social Exercise: no Seatbelt use: 100 % Laboratory Results Urine HCG: negative Physical Exam Appearance: well developed, well nourished, no acute distress Other Exams Lungs: no rales, rhonchi, or wheezes Heart: S1, S2, no murmur, rub, or gallop Genitourinary Exam Uterus: deferred for EUA Impression & Recommendations: Problem # 1: Excessive and frequent menstruation with regular cycle (ICD-626.2) (IPA67-X41.0) Orders: Ofc Vst Est 27006 ([id number]) Diagnosis explained to patient . Discussed with patient various medical, surgical and radiological therapies common for treatment including, but not limited to, myomectomy, hysterectomy and uterine artery embolization. Discus sed risks and benefits of laparotomy, laparoscopy, vaginal and robotic assisted approaches for hysterectomies. Patient desires definitive treatment in the form of robot assisted laparoscopic total hysterectomy. The risks and alternatives for this surgery were reviewed with the patient. She was informed of the risks of the surgery including, but not limited to, pain, infection, bleeding possibly heavy enough to require a blood transfusion with associated risks of infections (hepatitis and HIV) and transfusion reactions, possible damage to bowel, bladder or ureter(s) and surrounding organs. . Patient understands that this surgery will make her sterile. Indications to abort a robotic/laparoscopic procedure and perform an open procedure were explained. Patient understands once her ovaries are removed she will become menopausal. Her risks for cardiovascular disease and cancers angelo will increase, however lifestyle modifications to mitigate the risks were also discussed. Patient advised the small risks of spreading of malignancy if morcellation is required during the surgery patient understands and approves performing if necessary. Questions answered. Consent reviewed and signed The patient was instructed/informed the following: The normal length of hospital stay for this procedure. Nothing to eat or drink after midnight the evening prior to surgery.. Pre-op instruction sheets given. Wound care instructions given. Problem # 2: Fibroids of uterus; Intramural (ICD-218.1) (VOQ27-R58.1) Problem # 3: Pelvic and perineal pain (ICD-789.00) (IOU64-Z44.2) It was extensively explained to her that her pain may persist, recur or change in nature due to the difficulty with determining the exact etiology(ies) of chronic pelvic pain or development of adhesions. She declined other treatment options at this time. Problem # 4: Family History of Ovarian Cancer (ICD-V16.41) (VFZ58-H59.41) Medications and Allergies Allergies Allergy/AdvReac Type Severity Reaction Status Date / Time No Known Allergies Allergy Verified 01/09/21 17:26 Home Medications Medication Instructions Recorded Confirmed Last Taken Type Pantoprazole [Protonix] 40 mg PO QDAY #10 tablet 07/06/16 01/09/21 Unknown Rx traZODone [Desyrel] 100 mg PO QHS #30 tablet 11/12/19 01/09/21 Unknown Rx Dextroamphetamine/Amphetamine 30 mg PO DAILY 01/09/21 01/09/21 Unknown History [Dextroamp-Amphetamin 30 mg Tab] Ibuprofen [Motrin] 800 mg PO Q8HR PRN 01/09/21 01/09/21 Unknown History Metoprolol [Lopressor TAB] 50 mg PO QDAY 01/09/21 01/09/21 Unknown History methOCARBAMOL [Robaxin TAB] 750 mg PO Q8H PRN 01/09/21 01/09/21 Unknown History Active Meds: Active Medications Acetaminophen (Acetaminophen 500 Mg Tab) 1,000 mg PO PREOP LEIGHA Celecoxib (Celecoxib 200 Mg Cap) 200 mg PO PREOP NR Stop: 01/14/21 23:59 Fentanyl (Fentanyl 100 Mcg/2 Ml Inj) 100 mcg IV ONCE PRN PRN Reason: sedation for nerve block Gabapentin (Gabapentin 300 Mg Cap) 300 mg PO PREOP NR Stop: 01/14/21 23:59 Heparin Sodium (Porcine) (Heparin 10,000 Unit/1 Ml Vial) 5,000 unit IV ONCE ONE Stop: 01/14/21 17:20 Cefazolin Sodium (Ancef/Sterile Water 2 Gm/20 Ml) 2 gm in 20 mls @ 80 mls/hr IV PREOP NR; Protocol Stop: 01/14/21 23:00 Midazolam HCl (Midazolam 2 Mg/2 Ml Inj) 2 mg IV PREOP NR Stop: 01/14/21 23:59 Scopolamine (Scopolamine Transdermal Patch 72 Hr) 1 each TD PREOP NR Stop: 01/14/21 23:59 Exam Vital Signs Temp Pulse Resp BP Pulse Ox 98.2 F 68 20 134/88 99 01/10/21 13:35 01/10/21 13:35 01/10/21 13:35 01/10/21 13:35 01/10/21 13:35 Results - Labs 01/10/21 13:35 Assessment and Plan - Patient Problems (1) Excessive and frequent menstruation with regular cycle Status: Chronic (2) Intramural leiomyoma of uterus Status: Chronic (3) Pelvic and perineal pain Status: Chronic
[~2021-01-14 06:00] MED LIST changes: +ACETAMINOPHEN 500 MG TAB PO SCH; +CELECOXIB 200 MG CAP PO NR; +GABAPENTIN 300 MG CAP PO NR; +SCOPOLAMINE TRANSDERMAL PATCH 72 HR TD NR; -SODIUM CHLORIDE 0.9% 1000 ML 1,000 ML IV SCH; +ceFAZolin/Water 2 GM/20 ML 2 GM/20 ML SYRINGE IV NR; +fentaNYL 100 MCG/2 ML INJ IV PRN
[2021-01-14] MEDS ORDERED: LACTATED RINGERS 1,000 ML ONE (06:18)
[2021-01-14] MEDS ORDERED: BACTERIOSTATIC SODIUM CHLORIDE 0.9% 30 ML VIAL INFILTRATI ONE (06:34)
[2021-01-14] MEDS ORDERED: LACTATED RINGERS 1,000 ML IV SCH ×2 (07:05→13:30)
[2021-01-14] MEDS ORDERED: SUCCINYLCHOLINE CHLORIDE 200 MG/10 ML INJ MDV ONE (07:10)
[2021-01-14] MEDS ORDERED: BUPIVACAINE/PF (0.25%) 2.5 MG/ML 30 ML VIAL INFILTRATI ONE (07:10)
[2021-01-14] MEDS ORDERED: dexAMETHasone 4 MG/ML VIAL ONE (07:10)
[2021-01-14] MEDS ORDERED: LIDOCAINE MPF (2%) 20 MG/1 ML VIAL 5 ML ONE (07:10)
[2021-01-14] MEDS ORDERED: HYDROmorphone 1 MG/1 ML INJ ONE (07:10)
[2021-01-14] MEDS ORDERED: ROCURONIUM 50 MG/5 ML INJ IV ONE (07:10)
[2021-01-14] MEDS ORDERED: ONDANSETRON 4 MG/2 ML INJ ONE (07:10)
[2021-01-14] MEDS ORDERED: dexAMETHasone 20 MG/5 ML VIAL ONE (07:10)
[2021-01-14] MEDS ORDERED: propofoL 200 MG/20 ML VIAL IV ONE (07:11)
[2021-01-14] MEDS ORDERED: fentaNYL 100 MCG/2 ML INJ ONE (07:11)
[2021-01-14] MEDS ORDERED: HYDROmorphone 1 MG/1 ML INJ IV PRN (07:15)
[2021-01-14] MEDS ORDERED: ONDANSETRON 4 MG/2 ML INJ IV PRN ×2 (07:15→12:37)
--- NOTE | 2021-01-14 07:17 | Anesthesia Day of Surgery ---
Anesthesia Day of Surgery - Day of Surgery Patient Examined: Yes Patient H&P Reviewed: Yes Patient is NPO: Yes Beta Blockers: Yes
[2021-01-14] MEDS ORDERED: ePHEDrine SULFATE 50 MG/1 ML INJ ONE (07:19)
--- NOTE | 2021-01-14 07:20 | Anesthesia Consultation ---
Anesthesia Consult and Med Hx Date of service: 01/14/21 - Airway Anesthetic Teeth Evaluation: Chipped (Missing), Caps, Crowns ROM Head & Neck: Adequate Mental/Hyoid Distance: Adequate Mallampati Class: Class II Intubation Access Assessment: Good - Pre-Operative Health Status ASA Pre-Surgery Classification: ASA3 Proposed Anesthetic Plan: General Nerve Block: TAP - Pulmonary Hx Smoking: Yes (Recently quit) Hx Asthma: No Hx Respiratory Symptoms: No SOB: No COPD: No Hx Pneumonia: No Hx Sleep Apnea: No - Cardiovascular System Hx Hypertension: Yes Hx Coronary Artery Disease: No (+Cardiac clearance) Hx Heart Attack/AMI: No Hx Angina: No Hx Cardia Arrhythmia: Yes (PVCs; took metoprolol this morning) Hx Pacemaker: No Hx Internal Defibrillator: No Hx Valvular Heart Disease: No Hx Heart Murmur: No Hx Peripheral Vascular Disease: No - Central Nervous System Hx Neuromuscular Disorder: No Hx Seizures: No CVA: No Hx Back Pain: Yes Hx Psychiatric Problems: Yes (Anxiety/Depression) - Gastrointestinal Hx Ulcer: No Hx Gastroesophageal Reflux Disease: Yes - Endocrine Hx Renal Disease: No Hx End Stage Renal Disease: No Hx Cirrhosis: No Hx Liver Disease: No Hx Insulin Dependent Diabetes: No Hx Non-Insulin Dependent Diabetes: No Hx Thyroid Disease: No Hx Hypothyroidism: Yes Hx Hyperthyroidism: No - Hematic Hx Anemia: No Hx Sickle Cell Disease: No - Other Systems Hx Alcohol Use: Yes (Daily) Hx Substance Use: No Hx Cancer: No Hx Obesity: No - Additional Comments Anesthesia Medical History Comments: Past Medical History: Juvenille Arthritis. fibromyalgia. Arrhythmia Dr. Romero ([facility]). Insomnia. ADD. Herniated L5- S1. Degenerative hip disease. Anxiety. Premalignant melanoma. Hyperlipidemia. Esophageal dilation. Diverticulosis
[2021-01-14] MEDS ORDERED: NEOMY 40 MG/POLYMYXIN B 200,000 UNITS/ML (GU) AMPULE IR ONE ×2 (07:23→09:15)
[2021-01-14] MEDS: MIDAZOLAM 2 MG/2 ML INJ IV NR ×2 (07:32→07:35)
[2021-01-14 07:47] LABS: Alanine Aminotransferase 11 units/L (7-56); Blood Urea Nitrogen 14 mg/dL (7-17); Calcium 8.1 mg/dL (8.4-10.2); Hemolysis Index 4
[2021-01-14 08:02] LABS: BUN/Creatinine Ratio 28
[2021-01-14] MEDS ORDERED: SODIUM CHLORIDE P/F VIAL 10 ML 0 ML ONE (08:16)
[2021-01-14] MEDS ORDERED: METHYLENE BLUE 50 MG/10 ML AMP ONE (08:16)
[2021-01-14] MEDS ORDERED: METHYLENE BLUE 50 MG/10 ML AMP IRRIGATION ONE (09:16)
[2021-01-14] MEDS ORDERED: WATER FOR IRRIG STERILE 1,500 ML BOTTLE IR ONE (09:16)
--- NOTE | 2021-01-14 10:51 | Post Operative Note ---
Pre-op diagnosis: menorrhagia, pelvic pain, fibroids Post-op diagnosis: same (pelvic adhesions, endomtriosis) Findings: pelvic adhesions, endomtriosis Procedure: RALTH, BSO and EMRE Anesthesia: GETA Surgeon: JUAN FALCON (Gordon Cochran CSA) Estimated blood loss: 50-100ml Pathology: list (uterus, (B)tubes and ovaries and cerivx) Specimen disposition: to lab Condition: stable Disposition: PACU
[2021-01-14] MEDS: HYDROmorphone 1 MG/1 ML INJ IV PRN ×2 (11:04→11:14)
[2021-01-14] MEDS ORDERED: ONDANSETRON 4 MG ODT TAB PO PRN (12:37)
[2021-01-14] MEDS ORDERED: traMADol 50 MG TAB PO PRN (12:37)
[2021-01-14] MEDS ORDERED: ACETAMINOPHEN 325 MG TAB PO SCH ×2 (13:30→19:30)
--- NOTE | 2021-01-14 13:36 | Operative Report ---
Operative Report Operative Report: Date: 01/14/2021 Preoperative diagnosis: 1. Menorrhagia 2. Pelvic pain 3. Body mass index of 28.5 kg/m 4. Uterine fibroid Postoperative diagnosis: 1. Menorrhagia 2. Pelvic pain 3. Body mass index of 28.5 kg/m 4. Uterine fibroid 5. Endometriosis 6. Pelvic adhesions Procedure: 1. Robotic-assisted laparoscopic total hysterectomy with bilateral Salpingo-oophorectomy 2. Lysis of adhesion Surgeon: Rachel Alcocer MD Health Policy Analyst: Rebekah Cochran CSA Anesthesiologist: Dr. Whiteside Anesthesia: General endotracheal anesthesia EBL: Approximately 50 mL Findings: EUA: Uterus palpated to approximately 14 weeks. Uterus was sounded to 10 cm. Uterus adhered to the anterior abdominal wall. Thick scar tissue the lower uterine segment. Grossly normal tubes and ovaries. Procedure: Patient was taken to the OR and placed in the supine position. General anesthesia was induced and an oral gastric tube was placed. Her neck and head were placed on foam support. Foam eye protection with goggles were secured in place. Then foam face protection was placed and secured. Foam shoulder pads were then positioned on her shoulders for Trendelenburg positioning. She was then placed in dorsolithotomy position. Exam under anesthesia as above. The abdomen and vagina were then prepped and draped in the usual sterile fashion. Timeout was performed. A Tan catheter was inserted into the bladder with drainage of clear yellow urine. The operative speculum was introduced into the vagina and the anterior lip of the cervix was grasped with single-toothed tenaculum. The uterus was sounded to 10 cm. The cervix was progressively dilated to allow the media V care uterine manipulator. The bulb of the manipulator was inflated and the speculum and tenaculum were removed. The cup of the manipulator was placed around the cervix and the blue occluder of the manipulator was properly positioned in the vagina and secured. A laparotomy sponge that was saturated with a solution of polymyxin and saline was placed in the vagina to ensure pneumoperitoneum. Sterile gloves were placed and attention was turned to the abdomen. A 10 mm midline vertical supraumbilical incision was made approximately 10 cm superior to the elevated fundus of the uterus. A 10-12 mm trocar with the laparoscope and camera attached was introduced through this incision under direct visualization. The abdomen was insufflated. No obvious bowel, bladder, ureteral, or major vascular injury was noted. The patient was then placed in steep Trendelenburg position and the following trochars were placed under direct visualization: 8 mm robotic trochars were placed through incisions made in the bilateral midclavicular lower abdominal region approximately 10 cm lateral to the midline incision, and a 5 mm trocar was placed through an incision made in the right lower lateral pelvis. The 10 mm laparoscope was then replaced by a 5 mm laparoscope that was placed through the 5 millimeter lateral trocar. The 12 mm trocar was then removed and the Syd Rivera fascial closure device was placed through the incision and a 0 Vicryl was placed through the fascia. Once the suture was secured the 12 mm trocar was reintroduced. Once the trochars were in the appropriate positions, the da Chiara robot system was engaged. The EndoShears and bipolar device was placed through the 8 mm trochars and positioned then attention was turned to the console. The uterus was elevated and bilateral salpingectomy was performed. Each tube was removed through the 5 mm trocar and sent to pathology in separate containers. Then the utero-ovarian ligaments were clamped, cauterized and incised bilaterally using 30 W of energy. Then the round ligaments were clamped, cauterized and incised bilaterally. Then the dense adhesion of the uterus to the anterior abdominal wall was released with careful dissection. Once the anatomy was restored, the anterior leaf of the broad ligament was elevated and with careful blunt and sharp dissection the bladder flap was created. Thick scar tissue was encountered. At this point 240 mL of dilute methylene blue was placed into the bladder. With careful blunt and sharp dissection the tissue was released and the bladder flap was further developed and dissected away from the lower uterine segment and cervix. The posterior leaf of the broad ligament was dissected away from the uterine vessels. Endometrial implant was noted on the posterior cervical peritoneum. This implant was removed with the uterus and the cervix. The methylene blue was released into the under buttocks drape. The cup of the uterine manipulator was palpated both anteriorly and posteriorly. The bladder was further dissected away from the lower uterine segment. The uterine vessels were then clamped and cauterized bilaterally. Blanching of the uterus was then noted. Attention was again turned to the anterior lower uterine segment and the bladder was confirmed to be away from the operative field. Then attention was turned again to the posterior where the cup of the manipulator was palpated and a colpotomy was performed down to the cup. The incision was extended in the lateral position to the uterine vessels that were again clamped and cauterized and incised. Continuing along the cup of the manipulator in a circumferential manner the colpotomy was completed. The uterus and cervix were then removed through the vaginal incision. The pelvis was irrigated with warm normal saline. Then attention was turned back to the adnexa where the course of the ureters were visualized and noted to be away from the operative field. Then the left ovary was elevated and the infundibulopelvic ligament was clamped, cauterized, and incised. Once the ovary was released it was removed through the vaginal incision. Same procedure was performed on the right ovary once the ureter was noted to be away from the operative field. The tube was removed through the vaginal incision. A moist laparotomy sponge was placed in the vagina to maintain pneumoperitoneum. The vagina cuff was reapproximated using V LOC 180 suture. Then a J stitch was performed to secure the suture. Again the pelvis was copiously irrigated with polymixin in warm normal saline. The laparotomy sponge was removed from the vagina. No obvious evidence of bowel, bladder, ureteral, or major vascular injury was noted. Once hemostasis was noted, Maurice was applied to the operative field to ensure hemostasis. Then the instruments were removed, the robot was disengaged. The 12 mm trocar was removed and the fascia was ligated with the 0 Vicryl suture that was placed at the beginning of the procedure. The patient was taken out of Trendelenburg position, the abdomen was desufflated, the remaining trochars were removed. Incisions were reapproximated using 4-0 Monocryl in a subcuticular manner. Surgiseal was placed over the other incisions. The vagina was then inspected, the cuff was palpated to be intact and no bleeding was noted and clear pale blue urine was draining into the Tan bag from the bladder at the end of the procedure. Counts were correct 3. Patient was taken to recovery room in stable condition.
[2021-01-14] MEDS: KETOROLAC 30 MG/1 ML INJ IV SCH ×2 (16:13→21:29)
[2021-01-14] MEDS ORDERED: HEPARIN 10,000 UNIT/1 ML VIAL IV ONE (17:19)
--- NOTE | 2021-01-14 17:36 | Post Anesthesia Evaluation ---
- Post Anesthesia Evaluation Patient Participated: Yes Airway Patent: Yes Stable Respiratory Function: Yes Nausea/Vomiting: No Temp > 96.8F: Yes Pain Manageable: Yes Adequeate Hydration: Yes Anesthesia Complications: No Block Receding Appropriately: Yes Patient on Ventilator: No
--- NOTE | 2021-01-14 17:41 | Progress Note ---
Assessment and Plan Doing well. Excellent UO Operative findings and procedures explained. Plan of care and pain management strategies discussed. Questions encouraged and answered, she voiced understanding - Patient Problems (1) History of robot-assisted laparoscopic hysterectomy Current Visit: Yes Status: Acute (2) S/P BSO (status post bilateral salpingo-oophorectomy) Current Visit: Yes Status: Resolved (3) Endometriosis Current Visit: Yes Status: Chronic (4) Excessive and frequent menstruation with regular cycle Current Visit: No Status: Resolved (5) Intramural leiomyoma of uterus Current Visit: No Status: Resolved (6) Pelvic and perineal pain Current Visit: No Status: Resolved (7) Pelvic adhesions Current Visit: Yes Status: Resolved Subjective - Subjective Date of service: 01/14/21 Principal diagnosis: s/p RALTH, BSO, EMRE Interval history: Patient resting in bed, no complaints Patient reports: pain well controlled Objective - Vital Signs Latest vital signs: Vital Signs Temp Pulse Resp BP BP Pulse Ox 01/14/21 16:04 97.9 F 71 19 96 01/14/21 16:03 128/78 01/14/21 12:49 97.4 F L 73 19 144/83 98 01/14/21 11:30 69 16 133/75 98 01/14/21 11:15 97.3 F L 66 16 136/85 100 01/14/21 11:00 59 L 16 138/85 100 01/14/21 10:45 63 14 135/81 98 01/14/21 10:40 58 L 14 137/79 98 01/14/21 10:35 60 14 145/76 98 01/14/21 10:28 97.4 F L 57 L 16 150/75 100 01/14/21 08:03 14 01/14/21 07:47 60 11 L 140/68 97 01/14/21 07:42 59 L 11 L 130/79 97 01/14/21 07:37 64 15 143/77 96 01/14/21 07:32 59 L 16 142/80 98 01/14/21 07:20 16 01/14/21 06:40 98.2 F 58 L 18 141/91 98 01/14/21 06:20 18 01/14/21 06:15 98.2 F 58 L 18 141/91 98 Intake and Output 01/14/21 01/14/2121 06:59 14:59 22:59 Intake Total 550 Output Total 750 2100 Balance -200 -2099 Intake: IV 550 Output: Urine 750 2100 Indwelling Catheter 2100 Other: Total, Output Amount 2100 Voiding Method Toilet Indwelling Catheter - Exam Breasts: Present: deferred Cardiovascular: Present: Regular rate Lungs: Present: Clear to auscultation, Normal air movement Abdomen: Present: soft, normal bowel sounds. Absent: distention, tenderness Extremities: Present: normal. Absent: tenderness, edema Incision: Present: erythematous (RLQ and Right lateral w/ mild ecchymosis. No active bleeding) - Labs Labs: Abnormal lab results 01/14/21 Range/Units 07:25 Sodium 136 L (137-145) mmol/L Creatinine 0.5 L (0.6-1.2) mg/dL Glucose 107 H (65-100) mg/dL Calcium 8.1 L (8.4-10.2) mg/dL Total Protein 6.2 L (6.3-8.2) g/dL
[2021-01-14] MEDS: ceFAZolin/NS 1 GM/50 ML 1 GM/50 ML BAG IV SCH (18:21)
[2021-01-14] MEDS: ACETAMINOPHEN 500 MG TAB PO SCH (19:56)
[2021-01-14] MEDS ORDERED: traZODone 100 MG TAB PO SCH (22:00)
[2021-01-15] MEDS: ACETAMINOPHEN 500 MG TAB PO SCH (01:02)
[2021-01-15] MEDS: ceFAZolin/NS 1 GM/50 ML 1 GM/50 ML BAG IV SCH (03:23)
[2021-01-15] MEDS: KETOROLAC 30 MG/1 ML INJ IV SCH (05:14)
[2021-01-15 07:31] LABS: Hematocrit 33.6 % (30.3-42.9)
--- NOTE | 2021-01-15 09:35 | Discharge Summary ---
Providers - Providers Date of Admission: 01/14/21 10:34 Date of discharge: 01/15/21 Attending physician: JUAN FALCON Primary care physician: WALT PERDUE Hospitalization Condition: Good Procedures: RALTH, BSO and EMRE Hospital course: Uncomplicated Disposition: - TO HOME OR SELFCARE Final Discharge Diagnosis (Prints w/discharge instructions): RALTH, BSO and EMRE - Discharge Diagnoses (1) History of robot-assisted laparoscopic hysterectomy Status: Acute (2) S/P BSO (status post bilateral salpingo-oophorectomy) Status: Resolved (3) Endometriosis Status: Chronic (4) Excessive and frequent menstruation with regular cycle Status: Resolved (5) Intramural leiomyoma of uterus Status: Resolved (6) Pelvic and perineal pain Status: Resolved (7) Pelvic adhesions Status: Resolved Core Measure Documentation - Palliative Care Palliative Care/ Comfort Measures: Not Applicable - Core Measures Any of the following diagnoses?: none Exam - Constitutional Vitals: Temp Pulse Resp BP Pulse Ox 98.3 F 69 18 124/74 97 01/15/21 05:38 01/15/21 05:38 01/15/21 05:44 01/15/21 05:38 01/15/21 05:38 General appearance: Present: no acute distress - Neck Neck: Present: supple - Respiratory Respiratory effort: normal Respiratory: bilateral: CTA - Cardiovascular Rhythm: regular - Extremities Extremities: no ischemia, No edema - Abdominal General gastrointestinal: Present: soft, non-tender, non-distended, normal bowel sounds Female genitourinary: Present: deferred - Integumentary Integumentary: Present: clear, warm, dry (Mild ecchymosis at incision sites, no s/s infection or dehiscence. C/D/I) - Psychiatric Psychiatric: appropriate mood/affect, intact judgment & insight, memory intact, cooperative - Neurologic Neurologic: CNII-XII intact Plan Activity: other (No sex, no driving. Ambulate ~1mile on your property at day. Void every hour to prevent pressure from occurring on the top of your vagina. Use your incentive spirometer every hour while awake. ) Weight Bearing Status: Full Weight Bearing Diet: regular (Eat small meals frequently. Drink ~65oz water a day. Avoid spicy, high salt and fatty foods) Wound: open to air, keep clean and dry Special Instructions: no heavy lifting (Greater than 15 lbs) Follow up with: WALT PERDUE MD [Primary Care Provider] - 7 Days JUAN FALCON MD [Staff Physician] - (As scheduled) Prescriptions: Ibuprofen [Motrin 800 MG tab] 800 mg PO Q8H PRN #30 tablet PRN Reason: Pain, Moderate (4-6) oxyCODONE /ACETAMINOPHEN [Percocet 5/325 mg] 1 - 2 tab PO Q6H PRN #14 tablet PRN Reason: Pain, Moderate (4-6)
[2021-01-15] MEDS ORDERED: METOPROLOL TARTRATE 50 MG TAB PO SCH (10:00)
[2021-01-15] MEDS ORDERED: METOPROLOL TARTRATE 25 MG TAB PO SCH (10:00)
[2021-01-15] MEDS ORDERED: PANTOPRAZOLE 40 MG INJ IV SCH (10:00)
[2021-01-15] MEDS ORDERED: oxyCODONE /ACETAMINOPHEN 5-325MG TAB PO PRN (10:34)
[2021-01-15] MEDS ORDERED: IBUPROFEN 800 MG TAB PO PRN (10:34)
[2021-01-15 12:24] VITALS: BP 135/76
== END 2021-01-15 11:30 | disposition home or self-care (01) ==
LOC: OR 06:00 → OB 10:34
PROVIDERS: ADMIT Obstetrics & Gynecology; ATTEND Obstetrics & Gynecology
DX: D25.1 Intramural leiomyoma of uterus (principal); Z20.822 Contact with and (suspected) exposure to COVID-19; N73.6 Female pelvic peritoneal adhesions (postinfective); N92.0 Excessive and frequent menstruation with regular cycle; N80.9 Endometriosis, unspecified; R10.2 Pelvic and perineal pain; Z90.710 Acquired absence of both cervix and uterus; Z90.722 Acquired absence of ovaries, bilateral; Z98.891 History of uterine scar from previous surgery; Z98.890 Other specified postprocedural states
CPT/HCPCS: 36415; 58571; 64450; 80053; 81025; 85014; 85018; 85025; 86850; 86900; 86901; 88302; 88305; 88307; 96365; 96366; 96375; 96376; C9113; G0378; J0330; J0690; J1100; J1170; J1885; J2250; J2405; J2704; J3010; J7120; Q9968; S2900; U0003

== ENCOUNTER 2021-02-26 11:22 | Outpatient (CLI) | payer BC ==
[2021-02-26 13:14] LABS: Blood Urea Nitrogen 17 mg/dL (7-17)
--- NOTE | 2021-02-26 14:36 | Cat Scan Report ---
4 CT CHEST WITH CONTRAST INDICATION / CLINICAL INFORMATION: CHEST PAIN, 100ML OF OMNI 300 GIVEN, Chest pain on breathing and S OB. TECHNIQUE: Axial CT images were obtained through the chest after IV contrast. All CT scans at this [facility] are performed using CT dose reduction for ALARA by means of automated exposure control. COMPARISON: None available. FINDINGS: HEART: No significant abnormality. CORONARY ARTERY CALCIFICATION: None. THORACIC AORTA: No significant abnormality. MEDIASTINUM / TERI: No significant abnormality. PLEURA: No pleural effusion. No pneumothorax. LUNGS: No acute air space or interstitial disease. ADDITIONAL FINDINGS: Small hiatal hernia. UPPER ABDOMEN: No significant abnormality. SKELETAL SYSTEM: No significant abnormality. IMPRESSION: 1. No acute intrathoracic abnormality. 2. Small hiatal hernia. Signer Name: Rajeev Walker MD Signed: 02/26/2021 2:32 PM Workstation Name: [email or web address] NetworksWALKER [facility]ITAL
--- NOTE | 2021-02-26 15:02 | Cat Scan Report ---
CT PELVIS WITH IV CONTRAST INDICATION: RIGHT LOWER QUADRANT PAIN. COMPARISON: None available. TECHNIQUE: Axial CT images were obtained through the pelvis after IV contrast. All CT scans at this location are performed using CT dose reduction for ALARA by means of automated exposure control. FINDINGS: BOWEL: Normal. APPENDIX: Normal. PERITONEUM: No free fluid. No free air. No fluid collection. LYMPH NODES: No significant adenopathy. ARTERIES: No significant abnormality. VEINS: No significant abnormality. URINARY BLADDER: Normal. REPRODUCTIVE ORGANS: Prior hysterectomy. ADDITIONAL FINDINGS: None. SKELETAL SYSTEM: No acute abnormality. IMPRESSION: 1. No acute process in the pelvis. Signer Name: Will Angel MD Signed: 02/26/2021 2:57 PM Workstation Name: [email or web address]
--- NOTE | 2021-02-26 15:54 | Vascular Lab Report ---
DUPLEX DOPPLER LOWER EXTREMITY VEINS, RIGHT INDICATION / CLINICAL INFORMATION: PAIN IN RIGHT CALF. TECHNIQUE: Duplex doppler imaging was performed through the veins of the right lower extremity using venous compression and other maneuvers. COMPARISON: None available. FINDINGS: RIGHT COMMON FEMORAL VEIN: Negative. RIGHT FEMORAL VEIN: Negative. RIGHT POPLITEAL VEIN: Negative. RIGHT CALF VEINS: Negative. ADDITIONAL FINDINGS: None. IMPRESSION: 1. No sonographic evidence for DVT in the right lower extremity. Scribed by: Megan Rodriguez RDMS, RVT Scribed: 02/26/2021 2:16 PM I have reviewed the images, agree with this report, and edited this report as needed. Signer Name: Sahtya Britton MD Signed: 02/26/2021 3:49 PM Workstation Name: [id number]
== END 2021-02-26 11:23 | disposition home or self-care (01) ==
LOC: CT 11:22
PROVIDERS: ATTEND Obstetrics & Gynecology
DX: M79.661 Pain in right lower leg (principal); K44.9 Diaphragmatic hernia without obstruction or gangrene; R06.02 Shortness of breath; Z13.0 Encounter for screening for diseases of the blood and blood-forming organs and certain disorders involving the immune mechanism
CPT/HCPCS: 36415; 71260; 72193; 82565; 82607; 84520; 93971; Q9967

== ENCOUNTER 2021-05-09 14:59 | Outpatient (CLI) | payer BC ==
--- NOTE | 2021-05-09 15:38 | Mammography Report ---
DIGITAL BILATERAL DIAGNOSTIC MAMMOGRAM WITH TOMOSYNTHESIS WITH CAD, 05/09/2021 CLINICAL INFORMATION / INDICATION: Routine Screening Mammography. TECHNIQUE: Digital bilateral 2D diagnostic mammography with tomosynthesis was obtained in the cranio caudal and mediolateral oblique projections. Computer-Aided Detection (CAD) analysis was used for in terpretation of this study. COMPARISON: Left sided diagnostic exam from 11/14/2020 and bilateral screening exam from 01/18/2020 FINDINGS: Breast Density: There are scattered areas of fibroglandular density. No dominant mass, suspicious calcifications, or architectural distortion in either breast. Biopsy clip again seen on the left. IMPRESSION: No mammographic evidence of malignancy. Follow up recommendation: Routine yearly BI-RADS Category 2: Benign. A "normal" or negative report should not discourage follow up or biopsy of a clinically significant f inding. A written summary of these findings will be mailed to the patient. The patient will be entered into a mammography reporting system which will generate a reminder letter for the patient's next appointmen t at the appropriate interval. The [employer] recommends yearly mammograms starting at age 40 and continuing as l yeison as a woman is in good health. Breast MRI is recommended for women with an approximate 20-25% or greater lifetime risk of breast cancer, including women with a strong family history of breast or ova chelita cancer or who have been treated for Hodgkin's disease. Signer Name: Terry Jasso MD Signed: 05/09/2021 3:33 PM Workstation Name: [id number]
== END 2021-05-09 15:00 | disposition home or self-care (01) ==
LOC: MAMMO 14:59
PROVIDERS: ATTEND Obstetrics & Gynecology
DX: N64.4 Mastodynia (principal)
CPT/HCPCS: 77066

== ENCOUNTER 2021-10-10 05:52 | Outpatient (CLI) | payer BC ==
[2021-10-10 07:19] LABS: Hematocrit 37.3 % (30.3-42.9); Hemoglobin 12.4 gm/dl (10.1-14.3); Mean Corpuscular HGB Conc 33 % (30-34); Mean Corpuscular Volume 91 fl (79-97); Platelet Count 230 K/mm3 (140-440); Red Cell Distribution Width 13.1 % (13.2-15.2)
[2021-10-10 07:52] LABS: Alanine Aminotransferase 21 units/L (7-56); Albumin 4.4 g/dL (3.9-5); Blood Urea Nitrogen 22 mg/dL (7-17); Calcium 9.1 mg/dL (8.4-10.2); Chol/HDL Ratio 5.43 %; HDL Cholesterol 46 mg/dL (40-59); Hemolysis Index 4; LDL Cholesterol,Direct 166 mg/dL (50-130)
[2021-10-10 08:04] LABS: BUN/Creatinine Ratio 44
[2021-10-13 13:11] LABS: Vitamin D, 25-OH, D2 <4 ng/mL
== END 2021-10-10 05:53 | disposition home or self-care (01) ==
LOC: LAB 05:52
PROVIDERS: ATTEND Internal Medicine
DX: Z00.01 Encounter for general adult medical examination with abnormal findings (principal); I10 Essential (primary) hypertension; R53.83 Other fatigue; E78.2 Mixed hyperlipidemia; E55.9 Vitamin D deficiency, unspecified
CPT/HCPCS: 36415; 80053; 80061; 82306; 82607; 83036; 84443; 85027

== ENCOUNTER 2021-12-31 12:18 | Outpatient (CLI) | payer BC ==
--- NOTE | 2021-12-31 14:52 | Magnetic Resonance Report ---
MRI CERVICAL SPINE WITHOUT CONTRAST INDICATION / CLINICAL INFORMATION: M54.12 CERVICAL RADICULOPATHY, , CHRONIC NECK , BACK PAIN. TECHNIQUE: Multisequence, multiplanar images of the cervical spine were obtained. COMPARISON: None available. FINDINGS: CRANIOCERVICAL JUNCTION:No significant abnormality. ALIGNMENT: There is 2-3 mm anterolisthesis of C4 with respect to C5 which appears degenerative in purnima ure. The remaining cervical vertebra are normal in alignment. VERTEBRAE:Normal marrow signal and vertebral body height for age. VISUALIZED SPINAL CORD: No significant abnormality. No central canal stenosis is identified. [id number] ANALYSIS: C2-3: No significant disc abnormality, spinal canal stenosis, or neural foraminal stenosis. C3-4: No significant disc abnormality, spinal canal stenosis, or neural foraminal stenosis. C4-5: Grade 1 anterolisthesis is again noted. A mild diffuse bulging disc is present but no herniatio n. There is moderate to severe hypertrophic left facet arthropathy with moderate to severe left neura l foraminal narrowing. The right facet joint is unremarkable. C5-6: There is mild disc desiccation and narrowing with mild to moderate bilateral uncovertebral spur ring. There are mild arthritic changes in the facet joints. There is mild left neural foraminal narro wing. C6-7: A mild diffuse bulging disc is present. There are mild arthritic changes in the facet joints. N o significant neural foraminal narrowing. Small nerve root cysts are identified bilaterally measuring up to 4 mm. C7-T1: No significant disc abnormality, spinal canal stenosis, or neural foraminal stenosis. Moderate nerve root cyst is identified on the left side measuring 5 to 6 mm. PARASPINAL SOFT TISSUES: No significant abnormality. ADDITIONAL FINDINGS: None. IMPRESSION: No acute injury or central canal stenosis. Grade 1 anterolisthesis of C4 with respect to C5 appears degenerative in nature. Mild to moderate degenerative disc disease at C4-5, C5-6 and C6-7. Hypertrophic left facet arthropathy at C4-5 resulting in severe left neural foraminal narrowing. Signer Name: Prosper Cook Jr, MD Signed: 12/31/2021 2:48 PM Workstation Name: [id number]
--- NOTE | 2021-12-31 14:58 | Magnetic Resonance Report ---
MRI LUMBAR SPINE WITHOUT CONTRAST INDICATION / CLINICAL INFORMATION: M54.42 LUMBAGO WITH SCIATICA, LT SIDE. TECHNIQUE: Multisequence, multiplanar images of the lumbar spine were obtained. COMPARISON: None available. FINDINGS: ALIGNMENT: Normal lumbar lordosis without significant scoliosis. VERTEBRAE:Normal marrow signal and vertebral body height for age. VISUALIZED SPINAL CORD: No significant abnormality. The conus terminates near the mid body of L2. The cauda equina is unremarkable. [id number] ANALYSIS: L1-2: No significant abnormality. L2-3: No significant abnormality. L3-4: Mild disc desiccation and narrowing is identified. Mild diffuse posterior bulging disc is prese nt which narrows the lateral recesses bilaterally. There is mild facet arthropathy and mild hypertrop hy ligamentum flavum. No central canal narrowing or significant neural foraminal narrowing. L4-5: Mild disc desiccation and narrowing is identified. A mild diffuse posterior bulging disc is pre sent which narrows the lateral recesses bilaterally. There is mild to moderate facet arthropathy and hypertrophy of the ligamentum flavum. No central canal narrowing or significant neural foraminal narr owing. L5-S1: Mild disc desiccation and narrowing is identified. Mild diffuse posterior bulging disc is pres ent. There is mild hypertrophy ligamentum flavum. The facet joints are unremarkable. Moderate to maxwell re bilateral neural foraminal narrowing is present. The right side appears slightly more affected. PARASPINAL SOFT TISSUES: No significant abnormality. ADDITIONAL FINDINGS: None. IMPRESSION: Mild to moderate degenerative changes at L3-4, L4-5 and L5-S1 as described. L5-S1 appears to be the m ost affected level where there is moderate to severe bilateral neural foraminal narrowing. No focal h erniation is detected. Signer Name: Prosper Cook Jr, MD Signed: 12/31/2021 2:53 PM Workstation Name: [id number]
== END 2021-12-31 12:19 | disposition home or self-care (01) ==
LOC: MRI 12:18
PROVIDERS: ATTEND Psychiatry & Neurology Neurology
DX: M51.17 Intervertebral disc disorders with radiculopathy, lumbosacral region (principal); M48.07 Spinal stenosis, lumbosacral region; M47.27 Other spondylosis with radiculopathy, lumbosacral region; M50.023 Cervical disc disorder at C6-C7 level with myelopathy; M50.123 Cervical disc disorder at C6-C7 level with radiculopathy; M50.022 Cervical disc disorder at C5-C6 level with myelopathy; M50.122 Cervical disc disorder at C5-C6 level with radiculopathy; M48.02 Spinal stenosis, cervical region; M50.021 Cervical disc disorder at C4-C5 level with myelopathy; M50.121 Cervical disc disorder at C4-C5 level with radiculopathy; M47.812 Spondylosis without myelopathy or radiculopathy, cervical region
CPT/HCPCS: 72141; 72148

== ENCOUNTER 2022-04-03 08:30 | Outpatient (CLI) | payer BC ==
--- NOTE | 2022-04-03 09:17 | Mammography Report ---
DIGITAL DIAGNOSTIC MAMMOGRAM CONVENTIONAL, 04/03/2022 CLINICAL INFORMATION / INDICATION: Occasional generalized shooting left breast pains without focal co mplaint. N64.4 TECHNIQUE: Digital bilateral mammographic imaging was performed. COMPARISON: 02/14/2013 through 05/09/2021. FINDINGS: Breast Density: There are scattered areas of fibroglandular density. No dominant mass, suspicious calcifications or architectural distortion in either breast. There is a left biopsy clip. IMPRESSION: No mammographic evidence of malignancy. Follow up recommendation: Routine yearly screening mammogram. BI-RADS Category 2: BENIGN. A "normal" or negative report should not discourage follow up or biopsy of a clinically significant f inding. A written summary of these findings will be mailed to the patient. The patient will be entered into a mammography reporting system which will generate a reminder letter for the patient's next appointmen t at the appropriate interval. According to the [employer], yearly mammograms are recommended starting at age 40 and continuing as long as a woman is in good health. Breast MRI is recommended for women with an nimo roximately 20-25% or greater lifetime risk of breast cancer, including women with a strong family his tory of breast or ovarian cancer and women who have been treated for Hodgkin's disease. Signer Name: Javier Price MD Signed: 04/03/2022 9:12 AM Workstation Name: [id number]
== END 2022-04-03 08:31 | disposition home or self-care (01) ==
LOC: MAMMO 08:30
PROVIDERS: ATTEND Obstetrics & Gynecology
DX: N64.4 Mastodynia (principal)
CPT/HCPCS: 77066